=== PATIENT | male | born 1965 | race Caucasian/White ===

== ENCOUNTER 2017-10-19 09:27 | Emergency (ER) | payer OTHER ==
[2017-10-19] MEDS ORDERED: Tetan/Diph/Pertus SYR(Tdap)* 0.5 ML SYR(BOOSTRIX) use SYR IM ONE (09:49)
--- NOTE | 2017-10-19 10:02 | UC ---
Laceration HPI - HPI Summary HPI Summary: 52 yo male presents with LEFT knee laceration that occurred about 1 hour [employer] while at work. He tells me that he was using a chainsaw at work and it slipped and hit his left knee. Sustained a small laceration. He applied a bandage. Unsure when last tetanus was. - History Of Current Complaint Chief Complaint: UCLaceration Stated Complaint: KNEE LAC Time Seen by Provider: 10/19/17 10:02 Hx Obtained From: Patient Laceration Location: Knee Mechanism Of Injury: Sharp Trauma Severity: Mild Pain Intensity: 1 Pain Scale Used: 0-10 Numeric - Allergies/Home Medications Allergies/Adverse Reactions: Allergies Allergy/AdvReac Type Severity Reaction Status Date / Time No Known Allergies Allergy Verified 10/19/17 09:46 Home Medications: Home Medications NK [No Home Medications Reported] 10/19/17 [History Confirmed 10/19/17] PMH/Surg Hx/FS Hx/Imm Hx - Additional Past Medical History Additional PMH: None Previously Healthy: Yes - Surgical History Surgical History: Yes Surgery Procedure, Year, and Place: tonsillectomy - Family History Known Family History: Positive: None - Social History Occupation: Employed Full-time Lives: With Family Alcohol Use: Occasionally Substance Use Type: None Smoking Status (MU): Former Smoker - Immunization History Most Recent Tetanus Shot: unknown >5yrs Review of Systems Constitutional: Negative Skin: Other - Laceration left knee Respiratory: Negative Cardiovascular: Negative Neurovascular: Negative Musculoskeletal: Negative Neurological: Negative Psychological: Negative All Other Systems Reviewed And Are Negative: Yes Physical Exam - Summary Physical Exam Summary: GENERAL: NAD. WDWN. No pain distress. SKIN: Left knee: anterior just lateral to the patella with partial thickness 1.0cm laceration. No subcue tissue exposed. NECK: Supple. Nontender. No lymphadenopathy. CHEST: No accessory muscle use. Breathing comfortably and in no distress. CV: Pulses intact popliteal, PT, and DP. Brisk cap refill. MSK: LEFT KNEE: FROM. Strength 5/5. No edema or obvious bony deformities. NEURO: Alert. Sensations intact and symmetric B/L LEs PSYCH: Age appropriate behavior. Triage Information Reviewed: Yes Vital Signs: Initial Vital Signs Temp 98.6 F 10/19/17 09:40 Pulse 90 10/19/17 09:40 Resp 16 07/24/18 09:40 BP 154/85 10/19/17 09:40 Pulse Ox 96 10/19/17 09:40 Vital Signs Reviewed: Yes Laceration Repair - Laceration Repair 1 Description: Linear Laceration Size After Repair: Length (cm) - 1.0 Irrigation With Pressure Irrigation Device: Yes Closure Material: Skin Adhesive Laceration Course/Dx - Course/Dx Course Of Treatment: Area was irrigated with 500mL NS. Pt was adamant that he did not want sutures. I explained to him that the area will likely open back up s/p glue as it is on a joint and that he will likely have a small scar. He was ok with this and elected to proceed with gluing. Dermabond was applied and dressed with telfa. tdap updated today - Differential Dx - Laceration/Wound Provider Diagnoses: Laceration left knee Discharge - Sign-Out/Discharge Documenting (check all that apply): Patient Departure - Discharge Plan Condition: Stable Disposition: HOME Patient Education Materials: Skin Adhesive Care (ED) Referrals: Sid Trimble MD [Primary Care Provider] - Additional Instructions: If you develop a fever, shortness of breath, chest pain, new or worsening symptoms - please call your PCP or go to the ED. Your blood pressure was high at todays visit. Please see your primary provider within 4 weeks for recheck and re-evaluation. 1) Keep the bandage clean, dry, and intact for at least 24 hours. Change dressing daily - Billing Disposition and Condition Condition: STABLE Disposition: Home
== END 2017-10-19 10:25 | disposition home or self-care (01) ==
LOC: UCEAST 09:27
DX: S81.012A Laceration without foreign body, left knee, initial encounter (principal); Z87.891 Personal history of nicotine dependence; W22.8XXA Striking against or struck by other objects, initial encounter; Y93.89 Activity, other specified; Y92.9 Unspecified place or not applicable; Y99.0 Civilian activity done for income or pay
CPT/HCPCS: 12001; 90715; 99201; G0463